=== PATIENT | male | born 1980 | race Two or more races ===

== ENCOUNTER 2023-11-05 13:42 | Emergency (ER) | payer MEDICAID ==
[~2023-11-05] VITALS: Ht 180.3 cm; Wt 118.2 kg
[2023-11-05] MEDS ORDERED: LOSA-382 PO ×2 (13:49→20:58)
[2023-11-05] MEDS ORDERED: AMLO-257 PO (13:49)
[2023-11-05 14:29] LABS: COVID AG,FIA SOURCE NASAL SWAB
[2023-11-05] MEDS ORDERED: 0.9% SODIUM CHLORIDE 10 ML SYRINGE IVP PRN (14:45)
[2023-11-05 14:58] LABS: INFLUENZA TYPE A NEGATIVE FOR TYPE A (NEGATIVE); INFLUENZA TYPE B NEGATIVE FOR TYPE B (NEGATIVE)
[2023-11-05 15:03] LABS: SARS-COV2 (COVID) ANTIGEN,FIA Positive (Negative)
[2023-11-05 15:20] LABS: BASOPHILS % (AUTO) 0.5 % (0.0-2.0); EOSINOPHILS % (AUTO) 2.6 % (1.0-6.0); HEMATOCRIT 43.2 % (41-53); HEMOGLOBIN 15.2 g/dL (13.5-17.5); LYMPHOCYTES # (AUTO) 1.3 K/uL (1.0-4.8); LYMPHOCYTES % (AUTO) 18.4 % (22.0-44.0); MEAN CORPUSCULAR HEMOGLOBIN 29.7 pg (26.0-34.0); MEAN CORPUSCULAR HGB CONC 35.1 G/dL (31.0-37.0); MEAN CORPUSCULAR VOLUME 85 fL (80-100); MONOCYTES # (AUTO) 0.8 K/uL (0.1-1.0); MONOCYTES % (AUTO) 11.6 % (2.0-9.0); NEUTROPHILS # (AUTO) 4.9 K/uL (1.8-7.7); NEUTROPHILS % (AUTO) 66.9 % (40.0-70.0); PLATELET COUNT (AUTO) 218 K/uL (150-450); RED BLOOD CELL COUNT(AUTO) 5.11 MIL/uL (4.50-5.90); WHITE BLOOD COUNT (AUTO) 7.3 K/uL (4.5-11.0)
[2023-11-05 15:30] LABS: ANION GAP 7 mmol/L (8-16); CALCIUM, TOTAL 8.6 mg/dL (8.8-10.5); CARBON DIOXIDE 28 mmol/L (22-29); CHLORIDE 101 mmol/L (98-107); GLOMERULAR FILTR. RATE CALC > 60 mL/min (>60); GLUCOSE,RANDOM 115 mg/dL (70-110); POTASSIUM 3.6 mmol/L (3.5-5.1); SODIUM SERUM 136 mmol/L (136-145); UREA NITROGEN, BLOOD 15 mg/dL (7-18)
[2023-11-05 15:31] LABS: PROTHROMBIN TIME 10.3 SEC (9.4-11.6)
[2023-11-05 15:36] LABS: ALANINE AMINOTRANSFERASE 47 U/L (12-78); ALKALINE PHOSPHATASE 129 U/L (46-116); ASPARTATE AMINOTRANSFERASE 39 U/L (15-37); BILIRUBIN,TOTAL 0.9 mg/dL (0.1-1.0); LACTIC ACID 0.7 mmol/L (0.4-2.0); TOTAL PROTEIN, SERUM 8.3 g/dL (6.4-8.2); TROPONIN I-HIGH SENSITIVITY 6 ng/L (<76)
[2023-11-05 15:38] LABS: B-TYPE NATRIURETIC PEPTIDE 5 pg/mL (0-100)
[2023-11-05] MEDS: SODIUM CHLORIDE 0.9% 3,550 ML IV ONE (15:53)
[2023-11-05] MEDS: ACETAMINOPHEN 1000 MG/ISO-OSM 100 ML IV ONE (15:53)
[2023-11-05 17:55] LABS: APPEARANCE,URINE CLEAR (CLEAR); BILIRUBIN,URINE NEGATIVE (NEGATIVE); COLOR,URINE COLORLESS (YELLOW); GLUCOSE, URINE (UA) NEGATIVE (NEGATIVE); KETONES,URINE NEGATIVE (NEGATIVE); LEUKOCYTE ESTERASE ,URINE NEGATIVE (NEGATIVE); NITRATE,URINE NEGATIVE (NEGATIVE); OCCULT BLOOD,URINE NEGATIVE (NEGATIVE); PROTEIN,URINE NEGATIVE (NEGATIVE); SPECIFIC GRAVITIY, URINE 1.008 (1.003-1.030); UROBILINOGEN,URINE <=1.0 mg/dL (<=1.0)
[2023-11-05] MEDS: AmLODIPine BESYLATE 5 MG TABLET PO ONE (18:27)
[2023-11-05 19:39] VITALS: TEMP 98.5
[2023-11-05] MEDS ORDERED: NIRM1TAB10 PO (19:39)
[2023-11-05] MEDS: LOSARTAN POTASSIUM 50 MG TABLET PO ONE (19:46)
[2023-11-05 20:56] VITALS: BP 173/58; PULSE 65; RESP 18
== END 2023-11-05 21:09 | disposition home or self-care (01) ==
LOC: EMS 13:42
DX: U07.1 COVID-19 (principal); I10 Essential (primary) hypertension
CPT/HCPCS: 99285; 96365; 71045; 87426; 80053; 81003; 83605; 83880; 84484; 85025; 85610; 87040; 87804; 36415; 93005; 84145; J7030; J0131